=== PATIENT | male | born 1940 | race Caucasian/White ===

== ENCOUNTER → 2024-04-10 | Outpatient (CLI) | payer OTHER ==
[2024-04-10 13:47] LABS: BACTERIA 4+; BILIRUBIN Negative (Negative); BLOOD 3+ (Negative); CLARITY Cloudy (Clear); COLOR Yellow (Yellow); GLUCOSE Negative (Negative); KETONE Negative (Negative); LEUKO ESTERASE 3+ (Negative); NITRITE Negative (Negative); PH 6.5 (4.5-8.0); RBC TNTC rbc/hpf (0-2); SPECIFIC GRAVITY 1.015 (1.001-1.030); UROBILINOGEN 0.2 E.U./dl (0.0-1.0); WBC TNTC wbc/hpf (0-5)
== END | disposition home or self-care (01) ==
LOC: LAB 11:49
PROVIDERS: ATTEND Internal Medicine
DX: N23 Unspecified renal colic (principal)

== ENCOUNTER 2025-08-13 10:21 | Emergency (ER) | payer OTHER ==
[~2025-08-13] VITALS: Ht 162.5 cm; Wt 81.6 kg
[2025-08-13 10:29] VITALS: BP 190/79
[2025-08-13 10:52] LABS: BASO # 0.1 10*3/uL (0.0-0.1); BASO % 0.6 % (0.0-1.0); EOS # 0.4 10*3/uL (0.0-0.4); EOS % 3.8 % (1.0-4.0); MEAN CELL VOLUME 96.1 fl (80.0-94.0); MEAN CORPUSCULAR HGB 31.8 pg (27.0-31.0); MEAN PLATELET VOLUME 10.0 fl (9.6-12.3); MONO # 1.1 10*3/uL (0.1-1.0); MONO % 12.2 % (3.0-9.0); NEUT # 6.6 10*3/uL (2.3-7.9); NEUT % 71.1 % (47.0-73.0); NUCLEATED RED BLOOD CELL 0.0 % (0.0-0.0); NUCLEATED RED BLOOD CELL 0.0 10*3/uL (0.0-0.0); PLATELET COUNT AUTOMATED 251 10*3/uL (130-400); RED CELL DISTRI WIDTH 13.0 % (0-14.5)
[2025-08-13 11:10] LABS: BUN 20 mg/dl (9-23)
[2025-08-13] MEDS ORDERED: PREDNISONE20 M1 PO (11:50)
[2025-08-13] MEDS ORDERED: FAMCICLOVIR500 MG PO (11:50)
[2025-08-13] MEDS ORDERED: ACYCLOVIR 800 MG TAB PO ONE (11:55)
[2025-08-13] MEDS ORDERED: Dexamethasone Sodium Phospha 20 MG/5 ML VIAL IV ONE (11:55)
[2025-08-13] MEDS ORDERED: ACYCLOVIR 400 MG TAB PO ONE (11:55)
== END 2025-08-13 12:10 | disposition home or self-care (01) ==
LOC: ED 10:21
PROVIDERS: Emergency Medicine
DX: G51.0 Bell's palsy (principal); Z20.822 Contact with and (suspected) exposure to COVID-19